=== PATIENT | female | born 1945 | race Caucasian/White ===

== ENCOUNTER 2017-05-31 03:59 | Inpatient (IN) ==
[2017-05-31] MEDS ORDERED: ONDANSETRON 4 MG/2 ML INJECTION IV ONE (04:21)
[2017-05-31] MEDS ORDERED: NS 1,000 ML IV ONE (04:21)
--- NOTE | 2017-05-31 04:34 | Emergency Department Report ---
Abdominal Pain HPI - General Chief Complaint: Abdominal Pain <GraemeJuan Jose ny - 05/31/17 06:37> Stated Complaint: Lower abd pain <LeelanauJuan Jose ny - 05/31/17 06:37> Time Seen by Provider: 05/31/17 04:01 <GraemeJuan Jose - 05/31/17 06:37> Source: patient, family <RinconWalter [facility] 05/31/17 04:35> Mode of arrival: ambulatory <SergeyWalter [facility] 05/31/17 04:35> Limitations: no limitations <Rincon,Walter [facility] 05/31/17 04:35> - History of Present Illness HPI narrative: Patient has a 24-hour history of generalized abdominal pain, now radiating into right lower quadrant pain, sharp, and pointed. Patient has had nausea, but no vomiting, one episode of diarrhea. Patient denies chills, urinary complaints, chest or breathing complaints. <SergeyWalter [facility] 05/31/17 04:35> - Related Data Home Medications Medication Instructions Recorded Confirmed Calcium Carbonate/Vitamin D3 1 tab PO DAILY #0 01/31/13 05/31/17 (Calcium + D 600 Mg Tablet) Multivitamins (Multivitamin) 1 tab PO DAILY #0 01/31/13 05/31/17 Tamoxifen Citrate 1 tab PO HS 05/31/17 05/31/17 <Juan Jose Bedolla - 05/31/17 06:37> Allergies Allergy/AdvReac Type Severity Reaction Status Date / Time No Known Allergies Allergy Unverified 05/31/17 04:13 <Juan Jose Bedolla - 05/31/17 06:37> Review of Systems All systems: reviewed and negative except as stated <SergeyWalter [facility] 04:35> [facility] Patient Stated Medical History Migraine Yes: occular migraines Post Menopausal Yes <Juan Jose Bedolla - 05/31/17 06:37> Patient Stated Medical History Migraine Yes: occular migraines Post Menopausal Yes Breast cancer, stage I treated with resection and current tamoxifen <Walter Rincon 05/31/17 04:35> Surgical History: Breast lumpectomy <Walter Rincon [facility] 05/31/17 04:35> - Social History Smoking status: Never smoker <Rincon05/31/17 04:35> Physical Exam - Limitations Limitations: no limitations <Rincon05/31/17 04:35> - General General appearance: alert, in distress (secondary to pain) <Rincon05/31/17 04:35> - Normal Exams: Head:: Normocephalic without trauma <Rincon05/31/17 04:35> Eyes:: Pupils are PERRLA w/ EOMI, No scleral icterus, irritation, or foreign bodies noted <Rincon05/31/17 04:35> ENMT:: No facial trauma, nasal exudates, pharyngeal erythema, or exudates are noted <Rincon05/31/17 04:35> Neck:: Full range of motion, without adenopathy, JVD, bruits or thyromegaly < Rincon05/31/17 04:35> Chest/Respirations:: Clear all gardner, with good airflow, and symmetry bilaterally <Rincon05/31/17 04:35> Cardiovascular:: Regular rate and rhythm, without murmur or gallop, Pulses 2+ all extremities, capillary refill, <2 seconds all extremities <Rincon05/31/17 04:35> Lymphatic:: No lymphadenopathy, or lymphedema noted <Rincon 04:35> Musculoskeletal:: No tenderness, or deformity noted, good range of motion, all extremities <Rincon05/31/17 04:35> Integumentary:: No rashes, hives, or bruising noted, hair and nails, without abnormality <Rincon05/31/17 04:35> Neurological:: Patient is alert, and oriented, cranial nerves, motor/sensory/ cerebellar, exams w/o gross deficits, to observation <Rincon05/31 04:35> Psychiatric:: Patient exhibits, appropriate attention, emotion and affect < Rincon05/31/17 04:35> - Abdominal Exam Abdominal exam: Present: soft, tenderness (significant right lower quadrant tenderness with guarding and rebounding), guarding, rebound, tenderness at McBurney's Point. Absent: distention, hyperactive bowel sounds, trauma, incision, psoas sign, obturator sign, Nava's sign, Rovsing's sign, mass, bruit , pulsatile mass, hernia <Walter Rincon H - 05/31/17 04:35> Course Vital Signs Temperature 98.7 F 05/31/17 04:01 Pulse Rate 83 05/31/17 04:01 Respiratory Rate 16 05/31/17 04:01 Blood Pressure 147/82 H 05/31/17 04:01 Pulse Oximetry 97 05/31/17 04:01 Temperature 98.7 F 05/31/17 04:01 Pulse Rate 79 05/31/17 05:47 Respiratory Rate 14 05/31/17 05:47 Blood Pressure 139/65 05/31/17 05:47 Pulse Oximetry 97 05/31/17 05:47 <Juan Jose Bedolla Q - 05/31/17 06:37> Vital Signs Temperature 98.7 F 05/31/17 04:01 Pulse Rate 83 05/31/17 04:01 Respiratory Rate 16 05/31/17 04:01 Blood Pressure 147/82 H 05/31/17 04:01 Pulse Oximetry 97 05/31/17 04:01 Temperature 98.7 F 05/31/17 04:01 Pulse Rate 83 05/31/17 04:01 Respiratory Rate 16 05/31/17 04:01 Blood Pressure 147/82 H 05/31/17 04:01 Pulse Oximetry 97 05/31/17 04:01 <Walter Rincon H - 05/31/17 04:35> Abdominal Pain - MDM Narrative Medical decision making narrative: Patient offered pain medication several times, declined at each offer Patient given Zofran and 1 L normal saline IV fluid bolus - CBC - CMP/L - UA - CT abdomen/pelvis - <Walter Rincon - 05/31/17 04:35> - Lab Data Result diagrams: 05/31/17 04:37 05/31/17 04:37 <Juan Jose Bedolla Q - 05/31/17 06:37> Lab Results 05/31/17 05/31/17 05/31/17 Range/Units 04:37 04:37 05:55 WBC 14.0 H (4.5-11.0) T/MM3 RBC 4.59 (4.00-5.20) M/MM3 Hgb 13.7 (12-16) GM/DL Hct 40.5 (36-46) % MCV 88.2 (80-100) UM3 MCH 29.8 (26-34) UUG MCHC 33.8 (31-37) GM/DL RDW Std Deviation 43.5 (36.9-50.2) FL Plt Count 220 (130-400) T/MM3 MPV 10.0 (9.4-12.4) UM3 Immature Gran % (Auto) Not performed Neut % (Auto) Not performed Lymph % (Auto) Not performed [place] % (Auto) Not performed Eos % (Auto) Not performed Baso % (Auto) Not performed Neut # Not performed Lymph # Not performed [place] # Not performed Eos # Not performed Baso # Not performed Abs Immat Gran (auto) Not performed Neutrophils % (Manual) 80.0 H (33-66) % Band Neutrophils % 6.0 (0-6) % Lymphocytes % (Manual) 10.0 L (23-45) % Monocytes % (Manual) 4.0 (0-9.0) % Neutrophils # (Manual) 11.2 H (1.8-7.7) T/MM3 Band Neutrophils # 0.8 T/MM3 Lymphocytes # (Manual) 1.4 (1-4.8) T/MM3 Monocytes # (Manual) 0.6 (0-0.8) T/MM3 RBC Morph Comment Normal Turbidity < 20 (0-20) Sodium 143 (134-144) MEQ/L Potassium 4.1 (3.6-5) MEQ/L Chloride 105 (98-107) MEQ/L Carbon Dioxide 25 (22-30) MEQ/L Anion Gap 13 (5-15) MEQ/L BUN 16.0 (7-17) MG/DL Creatinine 0.9 (0.7-1.2) MG/DL GFR Calculation 62 BUN/Creatinine Ratio 18 (6-26) RATIO Glucose 108 (65-110) MG/DL Calculated Osmolality 277 (261-280) MOSM/KG Calcium 9.5 (8.4-10.2) MG/DL Total Bilirubin 1.00 (0.20-1.30) MG/DL Conjugated Bilirubin 0.00 (0.00-0.30) MG/DL Unconjugated Bilirubin 0.60 (0.00-11.10) MG/DL Icterus Index < 2 (0-7) AST 35 (14-36) U/L ALT 34 (9-52) U/L Alkaline Phosphatase 69 (38-126) U/L Total Protein 7.7 (6.3-8.2) G/DL Albumin 4.3 (3.5-5.0) G/DL Globulin 3.4 (2.4-3.6) G/DL Albumin/Globulin Ratio 1.3 (1.1-2.2) RATIO Lipase 92 (23-300) U/L Specimen Hemolysis < 15 (0-25) Ur Collection Type Urine, clean catch Urine Color Yellow (YELLOW) Urine Clarity Clear Urine pH 7.0 (5.0-8.0) Ur Specific [place] <=1.005 L (1.015-1.025) Urine Protein Negative (NEGATIVE) Urine Glucose (UA) Negative (NEGATIVE) Urine Ketones Trace A (NEGATIVE) Urine Occult Blood Negative (NEGATIVE) Urine Nitrate Negative (NEGATIVE) Urine Bilirubin Negative (NEGATIVE) Urine Urobilinogen 0.2 (NORMAL) EU/DL Ur Leukocyte Esterase Negative (NEGATIVE) Urinalysis Comment Microscopic not ind. <Juan Jose Bedolla 05/31/17 06:37> Disposition Clinical Impression: Acute appendicitis Qualifiers: Acute appendicitis type: with localized peritonitis Qualified Code(s): K35.3 - Acute appendicitis with localized peritonitis <Juan Jose Bedolla 05/31/17 06:37> Disposition: 02 To [facility] <Juan Jose Bedolla 05/31/17 06:37> Condition: Stable <LeelanauJuan Jose ny 05/31/17 06:37> Instructions: <Juan Jose Bedolla 05/31/17 06:37> Prescriptions: No Action Multivitamins (Multivitamin) 1 tab PO DAILY #0 Calcium Carbonate/Vitamin D3 (Calcium + D 600 Mg Tablet) 1 tab PO DAILY #0 Tamoxifen Citrate 1 tab PO HS <Juan Jose Bedolla 05/31/17 06:37> Referrals: Des Martinez MD [Family Provider] - <Juan Jose Bedolla 05/31/17 06 :37> Forms: <Juan Jose Bedolla 05/31/17 06:37> Time of Disposition: 06:37 <Juan Jose Bedolla - 05/31/17 06:37> - Seen By: physician <Juan Jose Bedolla - 05/31/17 06:37>
[2017-05-31] MEDS: SALINE FLUSH 10ml SYRINGE IVF PRN ×2 (04:35→13:15)
[2017-05-31] MEDS ORDERED: IOHEXOL 300mg/ml 100ml INJECTION ONE (05:09)
[2017-05-31] MEDS ORDERED: NS 100 ML ONE (05:09)
[2017-05-31] MEDS ORDERED: SALINE FLUSH 10ml SYRINGE ONE (05:10)
[2017-05-31] MEDS ORDERED: ERTAPENEM 1 G in NS 100 ML IV ONE (06:36)
[2017-05-31] MEDS: NS 1,000 ML IV SCH ×2 (07:19→16:26)
[2017-05-31] MEDS ORDERED: MORPHINE SULFATE 4 MG SYRINGE IVP PRN ×2 (07:40→16:14)
[2017-05-31] MEDS ORDERED: ONDANSETRON 4 MG/2 ML INJECTION IVP PRN (07:40)
[2017-05-31 07:46] VITALS: BMI 21.0
--- NOTE | 2017-05-31 08:09 | General Surg History&Physical ---
- History of Present Illness Chief complaint: RLQ abd pain HPI: PEr [facility]. Anderson [facility] Patient Stated Medical History Migraine Yes: occular migraines Post Menopausal Yes Left Breast cancer 2012 Surgical History: Left Breast lumpectomy 2012, no chemo, only radiation and Tamoxafin. Tubal ligation. Family History: father - spine cancer with mets then of [place] age 56 mother - age 78 of stroke grandmother - liver cancer daughter - debilitating migraine headaches - Social History Smoking status: Never smoker Alcohol intake frequency: does not drink Household members: spouse Medications Home Medications Medication Instructions Recorded Confirmed Type Calcium Carbonate/Vitamin D3 1 tab PO DAILY #0 01/31/13 05/31/17 History (Calcium + D 600 Mg Tablet) Multivitamins (Multivitamin) 1 tab PO DAILY #0 01/31/13 05/31/17 History Tamoxifen Citrate 1 tab PO HS 05/31/17 05/31/17 History Allergies Allergy/AdvReac Type Severity Reaction Status Date / Time No Known Allergies Allergy Unverified 05/31/17 04:13 Review of Systems 10-point ROS: negative except for HPI and the following: - Gastrointestinal Gastrointestinal: Present: nausea, other (see HPI) - Genitourinary Females Only: Present: other (history of breast cancer) - Vital Signs Last Vital Signs Temp 97.1 F 05/31/17 07:25 Pulse 75 05/31/17 07:25 Resp 18 05/31/17 07:25 BP 130/60 05/31/17 07:25 Pulse Ox 99 05/31/17 07:25 - Laboratory Result Diagrams: 05/31/17 04:37 05/31/17 04:37 General Surgery Results - Results Labs: 05/31/17 04:37 05/31/17 04:37 Hospital Course Summary Disclaimer: The visit summary below is not to be considered part of the above Progress Note.
--- NOTE | 2017-05-31 08:28 | CT Scan Report ---
Indication: right lower quadrant pain PROCEDURE: CT abdomen pelvis w con: Encounter: Initial Comparison: None Technique: Axial CT images were performed through the abdomen and pelvis after the administration of intravenous contrast. Coronal and sagittal two-dimensional reformats. Automated Exposure Control and Iterative Reconstruction dose reducing techniques were utilized. Contrast: Omnipaque 300 89 mL Findings: The lung bases are clear. The liver is unremarkable. Multiple small stones in the gallbladder. The spleen, pancreas and adrenal glands are within normal limits. Kidneys show mild pelvocaliectasis without stone disease. No abdominal or pelvic lymphadenopathy. Bladder is mildly distended. Uterus is grossly normal. No free fluid. No evidence of a bowel obstruction. There is some fecalization of the distal small bowel suggesting slow motility. No CT evidence to suggest appendicitis. Bone windows show degenerative change in the spine. Impression: No acute disease process seen. Cholelithiasis. There is a preliminary report by [facility]. .
--- NOTE | 2017-05-31 10:28 | History and Physical ---
FINDINGS Mrs. Basilio is a 71-year-old female whom I was asked to see earlier this morning through the emergency room as a result of her history and physical findings of abdominal pain. The patient informs me that at 4 o'clock yesterday afternoon she began to notice a component of pain within her lower abdomen. As the evening progressed this pain became more localized to her right lower quadrant. Pain became more severe in nature. After the onset of pain the patient states she did have some nausea and vomiting as well as some loose stools. Pain is made worse with any type of movement. Pain is more "more tolerable if I lie still." She denies any radiating features of this right lower quadrant abdominal pain. Pain has been somewhat alleviated with pain medications. PAST MEDICAL HISTORY Performed by my nurse practitioner, Yonas Grimes. PAST SURGICAL HISTORY Performed by my nurse practitioner, Yonas Grimes. MEDICATIONS Performed by my nurse practitioner, Yonas Grimes. ALLERGIES Performed by my nurse practitioner, Yonas Grimes. SOCIAL HISTORY Performed by my nurse practitioner, Yonas Grimes. FAMILY HISTORY Performed by my nurse practitioner, Yonas Grimes. REVIEW OF SYSTEMS Performed by my nurse practitioner, Yonas Grimes. PHYSICAL EXAMINATION Mrs. Basilio is a 71-year-old female who does appear to be in some discomfort this morning. VITALS: Temperature 97.1, pulse 75, respirations 18, blood pressure 130/60, SaO2 99% on room air. HEENT: Normocephalic. Pupils are equal, round and reactive to light and accommodation. CHEST: Clear to auscultation bilaterally. HEART: Regular rate and rhythm. Normal S1 and S2 without gallops, murmurs or clicks. ABDOMEN: Palpation within the left lower quadrant does result in referred pain to her right lower quadrant, i.e. the patient does have a positive Rovsing's sign. Patient is exquisitely tender at McBurney's point. She does have a component of both voluntary and involuntary guarding with palpation in the right lower quadrant. Left upper quadrant and right upper quadrant are soft and nontender. I do not appreciate any evidence for hepatomegaly. EXTREMITIES: Without clubbing, cyanosis, or edema. NEURO: Cranial nerves II-XII grossly intact. Patient is without focal motor or sensory deficits. LABORATORY/RADIOGRAPH EVALUATION The patient had a CBC upon admission and her white count was 14,000. She did have a left shift with 80% neutrophils. CMP and lipase levels were obtained and found to be within normal limits. UA was obtained and found to be within normal limits. The patient did have a CT scan of her abdomen and pelvis. CT scan did not reveal any acute disease process seen. The patient was found to have cholelithiasis. There was no CT scan evidence to suggest appendicitis. ASSESSMENT 71-year-old female with severe right lower quadrant abdominal pain suspicious for acute appendicitis. PLAN Given the fact the patient does have exquisite tenderness within the right lower quadrant, it was my intuition that she was indeed suffering from appendicitis despite the "negative CT scan." Given the fact that her clinical history, physical findings and laboratory results are all indicative for acute appendicitis, it was my recommendation that we should proceed with surgical intervention/laparoscopic appendectomy. I did discuss in detail with the patient what a laparoscopic appendectomy entails and its associated risk which include, but are not limited to, bleeding, infection, as well as potential conversion to an open procedure. The patient understood and wished to proceed. JAMES
--- NOTE | 2017-05-31 13:29 | Anesthesia Preoperative Report ---
Anesthesia Preoperative Record - Date and Time Date: 05/31/17 Preoperative Diagnosis: Acute Appendicitis Proposed Procedure: laparoscopic appendectomy NPO Since Date: 05/30/17 NPO Since Time: 22:00 Allergies/Adverse Reactions: Allergies Allergy/AdvReac Type Severity Reaction Status Date / Time No Known Allergies Allergy Unverified 05/31/17 04:13 - Vital Signs Vital Signs: Temperature 99.2 F 05/31/17 13:04 Pulse Rate 78 05/31/17 13:04 Respiratory Rate 19 05/31/17 13:04 Blood Pressure 117/56 05/31/17 13:04 Pulse Oximetry 92 05/31/17 13:04 Height and Weight: Height 1.7 m Weight 61 kg Body Mass Index 21.0 - Medications Inpatient Medications: Current Medications Sodium Chloride (Normal Saline) 1,000 mls @ 100 mls/hr IV .Q10H [facility] Last Infusion: 05/31/17 12:53 Dose: 0 mls/hr Lactated Ringer's (Lactated Ringers) 1,000 mls @ 50 mls/hr IV .Q20H [facility] Last Admin: 05/31/17 13:15 Dose: 50 mls/hr Morphine Sulfate (Morphine Sulfate Inj) 2 - 4 mg IVP Q2H PRN PRN Reason: Pain Ondansetron HCl (Zofran) 4 mg IVP Q6H PRN PRN Reason: Nausea &/or vomiting Sodium Chloride (Iv Flush) 10 - 80 ml IVF PRN PRN PRN Reason: Flushing Last Admin: 05/31/17 13:15 Dose: 10 ml Home Medications: Home Medications Medication Instructions Recorded Confirmed Type Calcium Carbonate/Vitamin D3 1 tab PO DAILY #0 01/31/13 05/31/17 History (Calcium + D 600 Mg Tablet) Multivitamins (Multivitamin) 1 tab PO DAILY #0 01/31/13 05/31/17 History Tamoxifen Citrate 1 tab PO HS 05/31/17 05/31/17 History Is Patient on Beta Demetra?: No - Medical History Other History: Reports: Cancer - Surgical History Reproductive Surgery/Treatment: Reports: Lumpectomy (L BREAST), Tubal Ligation Anesthesia Reactions: None Hx Family Anesthesia Reaction: No History of Motion Sickness: No - Social History Smoking Status: Never smoker Substance Use Type: does not use Alcohol Intake Frequency: does not drink - Pertinent Findings Laboratory: CBC and BMP 05/31/17 04:37 05/31/17 04:37 BMP 05/31/17 04:37 Sodium 143 Potassium 4.1 Chloride 105 Carbon Dioxide 25 BUN 16.0 Creatinine 0.9 Glucose 108 Calcium 9.5 Liver Function 05/31/17 Range/Units 04:37 Total Bilirubin 1.00 (0.20-1.30) MG/DL AST 35 (14-36) U/L ALT 34 (9-52) U/L Alkaline Phosphatase 69 (38-126) U/L Albumin 4.3 (3.5-5.0) G/DL Urine 05/31/17 Range/Units 05:55 Urine Color Yellow (YELLOW) Urine Clarity Clear Urine pH 7.0 (5.0-8.0) Ur Specific [place] <=1.005 L (1.015-1.025) Urine Protein Negative (NEGATIVE) Urine Glucose (UA) Negative (NEGATIVE) EKG Rhythm: Normal Sinus Rhythm - Physical Exam Respiratory Exam: Present: lungs clear Cardiovascular Exam: Present: regular rate and rhythm, no murmur - Airway Assessment Mallampati Score: II TMD: 3 Fingerbreadths Neck Extension: good Teeth: chipped teeth/crowns Overall Assessment: no airway concerns - ASA ASA Score: 2 - Plan Anesthesia: General Inhalation Gases - Discussion Discussion: Discussed risks/options/alternatives of anesthesia and questions answered. Patient consents. Nursing pain assessment noted. Present for Discussion: spouse Attestation Statement: Prior to the delivery of any anesthetic medication, I examined the patient, developed the plan, obtained the patient's consent and discussed the risk and benefits of the procedure with the patient/guardian. - Additional Information Seen by Anesthesia: Yes
[2017-05-31] MEDS ORDERED: LR 1,000 ML IV SCH (13:30)
[2017-05-31] MEDS ORDERED: ROCURONIUM 50 MG/5 ML INJECTION IVP ONE ×2 (13:49→15:27)
[2017-05-31] MEDS ORDERED: BUPIVACAINE 0.25%/EPI 1:200,000 30ml SDV ONE (13:49)
[2017-05-31] MEDS ORDERED: PROPOFOL 20 ML ONE (13:49)
[2017-05-31] MEDS ORDERED: FentaNYL 100 MCG/2 ML INJECTION ONE ×2 (13:50→13:56)
[2017-05-31] MEDS ORDERED: BUPIVACAINE 0.25%/EPI 1:200,000 30ml SDV INFIL ONE (14:19)
[2017-05-31] MEDS ORDERED: GLYCOPYRROLATE 0.4 MG/2 ML INJECTION ONE (15:27)
[2017-05-31] MEDS ORDERED: NEOSTIGMINE 10 MG/10 ML INJECTION ONE (15:27)
[2017-05-31] MEDS ORDERED: HYDROMORPHONE 2 MG/ML INJECTION ONE (15:32)
--- NOTE | 2017-05-31 15:48 | General Surgery Procedure Note ---
Date of Procedure: 05/31/17 Surgeon: Justin Ladle Operator: Yonas Grimes APRN Postoperative Diagnosis: acute appendicitis Procedure: exploratory laparotomy with appendectomy Estimated Blood Loss: See Anesthesia Record.
[2017-05-31] MEDS ORDERED: HYDROMORPHONE PCA 30mg/30ml VIAL IV PRN (16:14)
[2017-05-31] MEDS ORDERED: METOCLOPRAMIDE 10mg/2ml INJECTION IVP PRN (16:14)
[2017-05-31] MEDS ORDERED: HYDROCODONE/APAP 5mg/325mg TABLET PO PRN (16:14)
--- NOTE | 2017-05-31 20:42 | Anesthesia Postoperative Note ---
- Date and Time Date: 05/31/17 Time: 20:41 - Status Patient Participated in Evaluation: Patient Participated in Person Vital Signs: Temperature 99 F 05/31/17 16:33 Pulse Rate 79 05/31/17 18:00 Respiratory Rate 22 05/31/17 18:00 Blood Pressure 111/56 05/31/17 18:00 Pulse Oximetry 100 05/31/17 18:00 Respiratory Function: Airway Patent Cardiovascular Function: Regular Pulse EKG Rhythm: Normal Sinus Rhythm Mental Status: Alert and Oriented Hydration: Taking PO Fluids Complications During Recover: None Apparent - Follow-Up Instructions Instructions: Per Surgeon
[2017-05-31] MEDS ORDERED: TAMOXIFEN 10 MG TABLET PO SCH (21:00)
[2017-06-01] MEDS: NS 1,000 ML IV SCH ×3 (02:53→16:20)
[2017-06-01] MEDS: ERTAPENEM 1 G in NS 100 ML IV SCH (05:30)
--- NOTE | 2017-06-01 09:40 | Operative Note ---
DATE OF SERVICE 05/31/2017 SURGEON Andrei Anderson MD AUDIT MACHINE OPERATOR Yonas Grimes APRN PREOPERATIVE DIAGNOSIS Appendicitis. POSTOPERATIVE DIAGNOSIS Appendicitis. PROCEDURE Attempted laparoscopic appendectomy with conversion to open appendectomy and lysis of adhesions. ANESTHESIA General endotracheal EBL AND FLUIDS Please see chart. BRIEF HISTORY/INDICATIONS Mrs. Basilio is a 71-year-old female whom I was asked to see through the emergency room earlier this morning as a result of her history and physical findings for significant right lower quadrant abdominal pain. CT scan was obtained that did not reveal any evidence for appendicitis or acute intraabdominal process. However upon examination the patient was found to be exquisitely tender within her right lower quadrant. She did have a degree of leukocytosis. As a result of the above indications, it was recommended that she undergo surgical intervention/appendectomy. For completeness please refer to notes included in the patient's chart. FINDINGS Upon laparoscopy the patient was found to have some component of exudate around the right salpinx. The cecum was actually adhered posteriorly to the right salpinx as well as the terminal ileum was adherent to the posterior aspect of the uterus. I could visualize was I thought was the beginning of the appendix posterior to the right salpinx. One could see there was a marked inflammatory process present at this location. I was however unable to dissect the terminal ileum and cecum way from the right salpinx and uterus. The remaining peritoneal cavity was without noted abnormalities. Procedure was converted to an open procedure. The patient was found to have acute appendicitis. There were significant inflammatory changes involving the pericecal region, as discussed above. Additionally it appeared that the sigmoid colon perhaps had had a prior bout of diverticulitis and was adherent as well within the pelvis adjacent to this pericecal inflammatory process. Perhaps 30-40 minutes were spent performing adhesiolysis. A standard open appendectomy was able to be completed without incident. Liver edge was smooth and without nodularities. Small bowel was run from the ligament of Treitz to the terminal ileum and was without visible or palpable abnormalities. Colon had a moderate amount of stool within it but no discrete palpable lesions were noted within the colon. DESCRIPTION OF PROCEDURE After informed consent was obtained, patient was brought to the operative suite , placed on the table in supine fashion. The abdomen was then prepped and draped in sterile fashion. Formal time-out was then completed. 0.25% Marcaine with epinephrine was injected just above the level of the umbilicus. One could see a prior surgical incision within the lower abdomen. A 2 cm incision was then made through the area of analgesia above the level of the umbilicus. Dissection was then carried down to the deep subcuticular tissues and underlying fascia. Fascia was then grasped with two Bridgett clamps and retracted anteriorly. A 1 cm incision was then made between the two Bridgett clamps. A hemostat was then introduced through the fascial incision and gently spread. A U-stitch was then placed with 0 Vicryl. A 12 mm Rosa Elena port was then placed in the peritoneal cavity. Pneumoperitoneum was established to a patient pressure of 15 mmHg utilizing carbon dioxide. Next an additional 5 mm port was then placed in the suprapubic region. An additional 12 mm port was then placed within the right upper quadrant. Each port site was preinjected with 0.25% Marcaine with epinephrine and placed under direct visualization. Abdominal cavity was explored via the laparoscope. Findings were noted as above. One could see what appeared to be a component of periappendiceal exudate posterior to the right salpinx. The cecal region and terminal ileum were densely adherent to the posterior aspect of the uterus and right salpinx. A fair amount of time was spent trying to attempt to dissect the terminal ileum and cecum from the posterior aspect of the right salpinx and uterus. After a moderate amount of time, it became clear that this was going to be a very difficult task to complete laparoscopically. Therefore we elected to proceed with conversion to an open procedure. Ports were removed and pneumoperitoneum was released. A standard midline incision was then made from just above the pubic symphysis up to and above the level of the umbilicus. Underlying subcutaneous tissues, fascia, and peritoneum were then opened to the extent of the incision. A Codman retractor was then placed to provide adequate exposure. Attention was then focused to the area of concern. Utilizing finger/blunt dissection, the cecum and terminal ileum was bluntly dissected away from the right salpinx and posterior aspect of the uterus. During this process, the appendix actually "tore/divided in half". One could see base of the appendix still present upon the cecum. Upon visualization, one could see the remaining portion of the appendix densely adherent to the posterior aspect of the uterus. Additionally the sigmoid colon had "turned upon itself" within the pelvis and there was redundancy of the sigmoid colon and a portion of the sigmoid colon was adjacent to this pericecal inflammation and next to the appendix that was densely adherent to the posterior aspect of the uterus. With careful dissection , the sigmoid colon was able to be delivered out of the pelvis. Now one could see better visualization within the pelvis itself. During the process of dissection, some bleeding began to occur along the left salpinx where the sigmoid colon had been dissected away from the left salpinx. [id number]-yc-[id number] suture was placed at the site of bleeding upon the left salpinx resulting in hemostasis. Attention was then focused back to the portion of the appendix that was densely adherent to the uterus. This portion of the appendix was able to be dissected away from the posterior aspect of the uterus. Perhaps about 30- 40 minutes was spent dissecting the terminal ileum and sigmoid colon out of the pelvis so that adequate visualization could be accomplished. Once the distal aspect of the appendix which had remained adherent to the uterus was completely resected, it was passed off the table as a surgical specimen. Attention was then focused back to the base of the cecum. Remaining appendix was dissected out circumferentially at the base of the appendix. A suture ligature was then performed at the base of the appendix. Appendix distal to the suture ligature was transected with a knife. The appendiceal stump was cauterized. A 3-0 Vicryl pursestring suture was placed circumferentially around the base of the appendiceal stump. Appendiceal stump was then attempted to be inverted into the pursestring suture as this pursestring suture was being tied securely. There were enough inflammatory changes present involving the base of the appendix that this was not able to be accomplished. Therefore the appendiceal stump was closed by placing multiple Lembert sutures of 3-0 Vicryl adjacent to the appendiceal stump. This resulted in complete closure of the appendiceal stump once each Lembert suture had been tied sequentially. Prior areas of dissection were inspected and found be hemostatic in nature. Irrigation was performed and all irrigant was suctioned till clear. Attention was then directed towards closure. Instrument, sponge and needle counts performed and found to be correct. Next the Codman retractor was removed. The fascia was closed in a running fashion with #1 PDS suture. Skin was then closed with atul. The patient was subsequently awakened from her anesthetic and was sent back to the ICU once deemed in stable condition. Additionally, it should be noted that Yonas Grimes APRN, was present throughout the entire case and played a pivotal role in providing assistance and exposure during the course of the procedure. JAMES
--- NOTE | 2017-06-01 10:42 | General Surgery Progress Note ---
Subjective Patient reports: pain is less (in RLQ, but notes incisional pain which is worse with activity, as expected), tolerating liquids well (tolerateing full liquids) , no flatus, no bowel movement, afebrile - Vital Signs Last Vital Signs Temp 98.4 F 06/01/17 08:01 Pulse 77 06/01/17 09:01 Resp 29 H 06/01/17 09:01 BP 85/62 06/01/17 09:01 Pulse Ox 98 06/01/17 09:01 - Laboratory Result Diagrams: 06/01/17 04:01 06/01/17 04:01 - Abnormal Exam Abdominal: hypoactive bowel sounds - Normal Exam General: alert, oriented Cardiovascular: regular rhythm, regular rate Respiratory: clear all gardner Abdominal: appropriately tender, incision(s) (Dressing midline incision in tact. ) Assessment and Plan (1) Status post exploratory laparotomy Current Visit: Yes Status: Acute (2) Acute appendicitis Current Visit: Yes Status: Resolved Qualifiers: Acute appendicitis type: with localized peritonitis Qualified Code(s): K35.3 - Acute appendicitis with localized peritonitis Plan: She is doing well for less than 24 hours post exploratory laparotomy. Ambulating , tolerating full liquids. Pain controlled with EDITOR INDEX and [place]. Labs stable. Sherley has bee DC'd about an hour ago, no void yet. Fo flatus of BM yet, will give Dulcolax PO. Will transfer to surgical floor. Hospital Course Summary Disclaimer: The visit summary below is not to be considered part of the above Progress Note. Sepsis Assessment - Evaluation Sepsis screening result: No Definite Risk
[2017-06-01] MEDS ORDERED: Bisacodyl EC TAB 5 MG TABLET PO ONE (11:15)
--- NOTE | 2017-06-01 20:03 | Progress Note ---
DATE OF SERVICE 06/01/2017 FINDINGS Mrs. Basilio was seen earlier today on rounds. She was in good spirits. States she is still experiencing a component of incisional discomfort but her severe right lower quadrant pain has now resolved following surgery. EXAM VITAL SIGNS: Afebrile, normotensive. Please refer to EMR. ABDOMEN: Soft. Minimal incisional tenderness present. LABORATORY/RADIOGRAPHIC EVALUATION The patient had a CBC today that was unremarkable. Hemoglobin has drifted down slightly at 10.9. White count 11.5. BMP obtained and found to be without marked abnormalities. ASSESSMENT 71-year-old female status post open appendectomy secondary to appendicitis. Patient currently doing well. PLAN Will advance diet as tolerated. Will continue with intravenous narcotics as needed for incisional discomfort. Hopefully, within the next 24-48 hours the patient will be able to be discharged to home. I am pleased with the patient' s postop progress at this time. JAMES
[2017-06-01] MEDS: TAMOXIFEN 20 MG PO SCH (20:52)
[2017-06-02] MEDS: KETOROLAC 15 MG/ML INJECTION IVP PRN ×2 (01:04→17:25)
[2017-06-02] MEDS: NS 1,000 ML IV SCH ×3 (03:33→17:26)
[2017-06-02] MEDS: ERTAPENEM 1 G in NS 100 ML IV SCH (05:52)
[2017-06-02] MEDS: ENOXAPARIN 40 MG/0.4 ML INJECTION SQ SCH (08:13)
[2017-06-02] MEDS: POLYETHYL GLYCOL 3350 17gm PACKET PO SCH (12:04)
[2017-06-02] MEDS ORDERED: Bisacodyl EC TAB 5 MG TABLET PO ONE (12:18)
--- NOTE | 2017-06-02 12:21 | Discharge Instructions ---
Discharge Plan - Med Rec/Dispo Referrals/Follow Up: Des Martinez MD [Family Provider] - Andrei Anderson MD [Physician] - 06/13/17 1:00 pm Additional Instructions: Miralax daily till 1st BM after discharge, then as needed. Prescriptions: New Hydrocodone/APAP 5/325 [[place] 5/325] 1 - 2 tab PO Q5H PRN #30 tab PRN Reason: Pain Amoxicillin/Potassium Clav [Augmentin 875-125 Tablet] 1 each PO BID #8 tab Continue Multivitamins (Multivitamin) 1 tab PO DAILY #0 Calcium Carbonate/Vitamin D3 (Calcium + D 600 Mg Tablet) 1 tab PO DAILY #0 Tamoxifen Citrate 1 tab PO HS Discharge Instructions/Outpatient Orders: Final Provider Discharge Instructions Location: Determined By Patient - Disposition 01 Discharged Home, Self-Care
--- NOTE | 2017-06-02 17:14 | Progress Note ---
DATE OF SERVICE 06/02/2017 FINDINGS Ms. Basilio was seen earlier today on rounds. The patient states that her incisional discomfort has significantly improved. She is not nauseated. She has not had a BM at this time. EXAM VITAL SIGNS: Afebrile, normotensive. ABDOMEN: Soft. Minimal incisional tenderness. ASSESSMENT 71-year-old female status post exploratory laparotomy, lysis of adhesions, appendectomy. Patient currently doing well. PLAN Will give oral cathartic. Otherwise, continue with current orders. Tomorrow hopefully the patient's activity will have resumed and we will plan tentatively on discharge tomorrow if the patient continues to progress as expected. JAMES
[2017-06-02] MEDS: SALINE FLUSH 10ml SYRINGE IVF PRN (18:33)
[2017-06-02] MEDS ORDERED: BISACODYL 10 MG SUPPOSITORY RECTALLY ONE (18:41)
[2017-06-02] MEDS: TAMOXIFEN 20 MG PO SCH (21:40)
[2017-06-03] MEDS: KETOROLAC 15 MG/ML INJECTION IVP PRN (00:27)
[2017-06-03 03:38] VITALS: RESP 16
[2017-06-03] MEDS: NS 1,000 ML IV SCH (05:43)
[2017-06-03] MEDS: ERTAPENEM 1 G in NS 100 ML IV SCH (05:44)
[2017-06-03 08:11] VITALS: PULSE 71
[2017-06-03] MEDS: POLYETHYL GLYCOL 3350 17gm PACKET PO SCH (08:41)
[2017-06-03] MEDS: ENOXAPARIN 40 MG/0.4 ML INJECTION SQ SCH (08:41)
--- NOTE | 2017-06-03 11:46 | Progress Note ---
DATE OF SERVICE 06/03/2017 FINDINGS Ms. Basilio this morning states she is feeling significantly better. She did have several bowel movements through the evening. EXAM VITAL SIGNS: Afebrile, normotensive. ABDOMEN: Soft, nontender. Incision clean, dry and intact. Some mild ecchymosis along the edges of incision. ASSESSMENT 71-year-old female status post open appendectomy, lysis of adhesions. Patient currently doing well. PLAN Discharge to home. JAMES
[2017-06-03 12:49] VITALS: BP 139/66; TEMP 96.8; O2SAT 96
--- NOTE | 2017-06-06 18:06 | Discharge Summary ---
Discharge Information Date of admission: 05/31/17 20:09 Attending Physician: Andrei Anderson MD Primary care physician: Des Martinez MD - Laboratory Labs: 06/01/17 04:01 06/01/17 04:01 Laboratory Tests 05/31/17 06/01/17 04:37 04:01 WBC 14.0 H 11.5 H - Pathology 05/31/2017 Abd/Pelvis CT Impression: Subtle inflammatory change in the right adnexal area next to a structure that could represent an unusually shaped appendix. Findings could represent acute appendicitis in the appropriate clinical setting. Surgical evaluation is recommended. - History of Present Illness Chief complaint: RLQ abd pain HPI: BRIEF HISTORY/INDICATIONS Mrs. Basilio is a 71-year-old female whom I was asked to see through the emergency room earlier this morning as a result of her history and physical findings for significant right lower quadrant abdominal pain. CT scan was obtained that did not reveal any evidence for appendicitis or acute intraabdominal process. However upon examination the patient was found to be exquisitely tender within her right lower quadrant. She did have a degree of leukocytosis. As a result of the above indications, it was recommended that she undergo surgical intervention/appendectomy. Hospital Course This is a general summary of the patient's hospital course. For more details refer to the complete medical record. Hospital course: 05/31/2017 Exploratory laparotomy with appendectomy, transferred to CCU postoperatively for close observation 06/01/2017 Plan: She is doing well for less than 24 hours post exploratory laparotomy. Ambulating , tolerating full liquids. Pain controlled with BIGHT MAKER and [place]. Labs stable. Sherley has bee DC'd about an hour ago, no void yet. Fo flatus of BM yet, will give Dulcolax PO. Will transfer to surgical floor. 06/02/2017 ASSESSMENT 71-year-old female status post open appendectomy secondary to appendicitis. Patient currently doing well. PLAN Will give oral cathartic. Otherwise, continue with current orders. Tomorrow hopefully the patient's activity will have resumed and we will plan tentatively on discharge tomorrow if the patient continues to progress as expected. 06/03/2017 She had a good BM. DC to home, see discharge instructions. DVT Prophylaxis: Lovenox Discharge Plan - Med Rec/Dispo Referrals/Follow Up: Andrei Anderson MD [Physician] - 06/13/17 1:00 pm Des Martinez MD [Family Provider] - Additional Instructions: Miralax daily till 1st BM after discharge, then as needed. Prescriptions: New Hydrocodone/APAP 5/325 [[place] 5/325] 1 - 2 tab PO Q5H PRN #30 tab PRN Reason: Pain Amoxicillin/Potassium Clav [Augmentin 875-125 Tablet] 1 each PO BID #8 tab Continue Multivitamins (Multivitamin) 1 tab PO DAILY #0 Calcium Carbonate/Vitamin D3 (Calcium + D 600 Mg Tablet) 1 tab PO DAILY #0 Tamoxifen Citrate 1 tab PO HS Discharge Instructions/Outpatient Orders: Final Provider Discharge Instructions Location: Determined By Patient - Disposition 01 Discharged Home, Self-Care
== END 2017-06-03 13:25 | disposition home or self-care (01) | DRG 337 ==
LOC: ED 03:59 → SUR 06:40 → SRG 06:44 → CCU 14:56 → SRG 06-01 13:14
PROVIDERS: ADMIT Surgery; ATTEND Surgery